=== PATIENT | female | born 1985 | race Caucasian/White ===

== ENCOUNTER 2020-01-31 02:06 | Emergency (ER) | payer MEDICAID ==
[~2020-01-31] VITALS: Ht 157.5 cm; Wt 73.0 kg
[2020-01-31 02:49] VITALS: BP 136/55; Ht 157.5 cm; Wt 73.0 kg
[2020-01-31 03:39] LABS: BASOPHIL % 0.2 % (0.2-1.3); PLATELET COUNT 267 x10^3mcL (179-408)
[2020-01-31 03:53] LABS: RED CELL DISTRIBUTION WIDTH 17.4 % (12.3-17.7)
[2020-01-31 03:58] LABS: CALCIUM 8.4 mg/dL (8.5-10.1); CHLORIDE SERUM 103 mmol/L (98-107); CREATININE SERUM 0.8 mg/dL (0.6-1.0); GFR1 > 60 mL/min; GLUCOSE SERUM 155 mg/dL (74-106); POTASSIUM SERUM 3.9 mmol/L (3.5-5.1); SODIUM SERUM 140 mmol/L (136-145)
[2020-01-31 04:09] LABS: ALBUMIN 3.9 g/dL (3.4-5.0); ALKALINE PHOSPHATASE 51 U/L (46-116); ALT/SGPT 34 U/L (14-59); AST/SGOT 20 U/L (15-37); BILIRUBIN TOTAL 0.21 mg/dL (0.20-1.00); LIPASE 134 IU/L (73-393); TOTAL PROTEIN, SERUM 7.5 g/dL (6.4-8.2)
== END 2020-01-31 08:35 | disposition home or self-care (01) ==
LOC: ED 02:06
DX: K80.50 Calculus of bile duct without cholangitis or cholecystitis without obstruction (principal)